=== PATIENT | female | born 1985 | race Caucasian/White ===

== ENCOUNTER 2017-04-29 10:49 | Emergency (ER) | payer SELFPAY ==
[2017-04-29 11:05] VITALS: BP 132/84; TEMP 98.1; O2SAT 98
--- NOTE | 2017-04-29 11:06 | ED.PDOC ---
History of Present Illness - General Chief Complaint: Upper Extremity Injury Stated Complaint: right hand pain since saturday after fall Time Seen by Provider: 04/29/17 10:59 Source: patient, RN notes reviewed, Vital Signs reviewed Exam Limitations: no limitations - History of Present Illness Initial Comments: Patient comes in with c/o of R hand pain over her 5th metacarpal after a fall on Saturday. She tripped over a toy and as she fell she she grabbed the railing around the porch. She has a small cut on the side of her hand that she believes is from the head of a nail. She is having pain when she flexes her pinky finger and can't make a fist. Occurred: other - 2 days ago Pain - Upper Extremity: moderate: Hand, right Method of Injury: fell Improving Factors: immobilization, rest Worsening Factors: movement Allergies/Adverse Reactions: Allergies NO KNOWN ALLERGY Allergy (Verified 04/29/17 10:58) Review of Systems - Review of Systems Constitutional: States: no symptoms reported Respiratory: States: no symptoms reported Cardiology: States: no symptoms reported Gastrointestinal/Abdominal: States: no symptoms reported Musculoskeletal: States: see HPI Skin: States: no symptoms reported Neurological: States: no symptoms reported. Denies: numbness, paresthesia, tingling, weakness All other Systems: No Change from Baseline Past Medical History (General) - Patient Medical History Hx Seizures: No Hx Stroke: No Hx Dementia: No Hx Asthma: No Hx of COPD: No Hx Cardiac Disorders: No Hx Congestive Heart Failure: No Hx Pacemaker: No Hx Hypertension: No Hx Thyroid Disease: No Hx Diabetes: No Hx Gastroesophageal Reflux: No Hx Renal Disease: No Hx Cancer: Yes - COLON Hx of HIV: No Hx Hepatitis C: No Hx MRSA: No Surgical History: other - Vaccination History Hx Tetanus, Diphtheria Vaccination: No - DONT REMEMBER Hx Influenza Vaccination: No Hx Pneumococcal Vaccination: No Immunizations Up to Date: No - Social History Hx Tobacco Use: No Hx Chewing Tobacco Use: No Hx Alcohol Use: No Hx Substance Use: No Hx Substance Use Treatment: No Hx Depression: No Feels Threatened In Home Enviroment: No Feels Threatened In a Relationship: No Hx Physical Abuse: No Hx Emotional Abuse: No Hx Suspected Abuse: No - Female History Patient is a Female of Child Bearing Age (10 -59 yrs old): Yes Hx Last Menstrual Period: 01/03/13 Patient : No Expected Date of Delivery:: 10/10/13 Family Medical History - Family History Father Family History: No Known Living Status: Still Living Hx Family Asthma: No Hx Family;Other: Myasthensia graves Physical Exam - Physical Exam General Appearance: Alert, Comfortable, No apparent distress, Well Developed, Well Groomed, Well Hydrated, Well Nourished Cardiovascular/Respiratory: normal peripheral pulses - with brisk capillary refill in fingers of R hand Elbow/Forearm Exam: normal inspection, non-tender, no evidence of injury, normal ROM Wrist Exam: no evidence of injury, normal ROM, soft tissue tenderness Hand Exam: bone tenderness - 5th metacarpal, ecchymosis - over 4th and 5th metacarpals, limited ROM - limited flexion due to pain, soft tissue tenderness, swelling Neuro/Tendon: normal sensation, normal motor functions, normal tendon functions , responds to pain, no evidence tendon injury Mental Status: alert, oriented x 3 Skin Exam: normal color, warm/dry Comments: Vital Signs 04/29/17 10:58 Temperature 98.1 F Pulse Rate [ 84 Left Radial] Respiratory 18 Rate Blood Pressure 132/84 [Left Arm] O2 Sat by Pulse 98 Oximetry Progress - Progress Progress: 04/29/17 11:24 Discussed result with patient. No signs of infection. She would like something to protect the area because every time she bumps it it is very painful. Will do a small, orthoglass splint over the area for protection. - EKG/XRAY/CT XRAY: hand - No fracture Procedures - Splinting Right 5th Digit Hand Hand-Made Type: orthoglass Splint: ulnar Pre-Proc Neuro Vasc Exam: normal Post-Proc Neuro Vasc Exam: normal Departure - Departure Clinical Impression: Contusion of right hand, initial encounter Time of Disposition: 11:26 Disposition: Discharge to Home or Self Care Condition: Good Departure Forms: ED Discharge - Pt. Copy, Patient Portal Self Enrollment Instructions: DI for Contusion, DI for Hand Injury Diet: resume usual diet Activity: increase activity as tolerated
--- NOTE | 2017-04-29 11:20 | RAD ---
EXAM DESCRIPTION: Hand,Right 3 Views CLINICAL HISTORY: Pain 5th [facility] s/p fall COMPARISON: None Available. TECHNIQUE: AP, LATERAL, AND OBLIQUE FINDINGS: Three-view right hand shows no fracture or dislocation. There is no bone lesion. There are no significant arthritic changes. There is no radiopaque foreign body. IMPRESSION: 1. Negative Electronically signed by: Benson Winkler MD 04/29/2017 11:18 AM CDT
== END 2017-04-29 11:32 | disposition home or self-care (01) ==
LOC: ER 10:49
DX: S60.221A Contusion of right hand, initial encounter (principal); Z85.038 Personal history of other malignant neoplasm of large intestine; W01.198A Fall on same level from slipping, tripping and stumbling with subsequent striking against other object, initial encounter; Y92.89 Other specified places as the place of occurrence of the external cause

== ENCOUNTER 2019-04-13 18:11 | Emergency (ER) | payer SELFPAY ==
[2019-04-13 18:26] VITALS: O2SAT 99
--- NOTE | 2019-04-13 18:46 | ED.PDOC ---
History of Present Illness - General Chief Complaint: General Time Seen by Provider: 04/13/19 18:13 Source: patient Exam Limitations: no limitations - History of Present Illness Initial Comments: the patient today 34-year-old female presenting to the emergency room secondary to cough and congestion of the couple days' duration. Additionally she has had some diarrhea for the last 24 hours. No abdominal pain. No CPR near syncope. No history of any GI bleed. She reports that she is 2 months . no shortness of breath. She does have some fatigue. Her significant other has similar symptoms. Timing/Duration: 24 hours Severity: moderate Improving Factors: nothing Worsening Factors: nothing Associated Symptoms: cough, malaise Allergies/Adverse Reactions: Allergies NO KNOWN ALLERGY Allergy (Verified 04/29/17 10:58) Home Medications: Ambulatory Orders Famotidine [Pepcid Tab] 20 mg PO BID #30 tab 04/13/19 Ondansetron Odt [Zofran ODT] 4 mg PO Q8HR PRN #5 tab 04/13/19 Review of Systems - Review of Systems Constitutional: States: malaise EENTM: States: nose congestion, throat pain Respiratory: States: cough Cardiology: States: no symptoms reported Gastrointestinal/Abdominal: States: diarrhea Genitourinary: States: no symptoms reported Musculoskeletal: States: no symptoms reported Skin: States: no symptoms reported Neurological: States: no symptoms reported Endocrine: States: no symptoms reported All other Systems: No Change from Baseline Past Medical History (General) - Patient Medical History Hx Seizures: No Hx Stroke: No Hx Dementia: No Hx Asthma: No Hx of COPD: No Hx Cardiac Disorders: No Hx Congestive Heart Failure: No Hx Pacemaker: No Hx Hypertension: No Hx Thyroid Disease: No Hx Diabetes: No Hx Gastroesophageal Reflux: No Hx Renal Disease: No Hx Cancer: Yes - Colon Hx of HIV: No Hx Hepatitis C: No Hx MRSA: No Surgical History: colectomy - Vaccination History Hx Tetanus, Diphtheria Vaccination: No - DONT REMEMBER Hx Influenza Vaccination: No Hx Pneumococcal Vaccination: No - Social History Hx Tobacco Use: No Hx Chewing Tobacco Use: No Hx Alcohol Use: No Hx Substance Use: No Hx Substance Use Treatment: No Hx Depression: No Hx Physical Abuse: No Hx Emotional Abuse: No Hx Suspected Abuse: No - Female History Patient is a Female of Child Bearing Age (10 -59 yrs old): Yes Hx Last Menstrual Period: 01/03/13 Patient : No Expected Date of Delivery:: 10/10/13 Family Medical History - Family History Father Family History: No Known Living Status: Still Living Hx Family Asthma: No Hx Family;Other: Myasthensia gravis Physical Exam - Physical Exam General Appearance: Alert, Comfortable, No apparent distress Eye Exam: bilateral normal Ears, Nose, Throat: hearing grossly normal, nasal congestion, pharyngeal erythema Neck: full range of motion, supple Respiratory: no respiratory distress, no accessory muscle use, rhonchi Cardiovascular/Chest: normal peripheral pulses, regular rate, rhythm, no edema Peripheral Pulses: radial,right: 2+, radial,left: 2+ Gastrointestinal/Abdominal: non tender, soft Rectal Exam: deferred Back Exam: no CVA tenderness, no vertebral tenderness Extremity: non-tender, normal inspection, no pedal edema, normal capillary refill 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 She is having symptoms of a viral upper respiratory tract infection as well as a viral gastroenteritis. The patient will be written for Zofran for as needed use to control any nausea or vomiting. She is to keep herself well hydrated. She can use plain [id number] Zyrtec once daily to help reduce rhinorrhea. She can use Tylenol for fever or discomfort. She needs to get set up with her bread dough mixer for this . If the diarrhea continues after the other symptoms subside then further studies can be performed. ER warnings are given for any worsening. the patient will be written for Pepcid for 2 weeks for any mild gastritis. arsalan eric [email or web address] Departure - Departure Clinical Impression: Viral syndrome Disposition: Discharge to Home or Self Care Condition: Fair Departure Forms: ED Discharge - Pt. Copy, Patient Portal Self Enrollment Diet: bland diet Activity: increase activity as tolerated Referrals: Megha,Gilmer E, MD [Primary Care Provider] - 1-2 Weeks Prescriptions: Ondansetron Odt [Zofran ODT] 4 mg PO Q8HR PRN #5 tab PRN Reason: Nausea--Moderate Famotidine [Pepcid Tab] 20 mg PO BID #30 tab Home Medications: Ambulatory Orders Famotidine [Pepcid Tab] 20 mg PO BID #30 tab 04/13/19 Ondansetron Odt [Zofran ODT] 4 mg PO Q8HR PRN #5 tab 04/13/19 Additional Instructions: the patient is a 34-year-old female presenting approximately 2 weeks gestational age secondary to what appears to be a viral syndrome. She is having symptoms of a viral upper respiratory tract infection as well as a viral gastroenteritis. The patient will be written for Zofran for as needed use to control any nausea or vomiting. She is to keep herself well hydrated. She can use plain [id number] Zyrtec once daily to help reduce rhinorrhea. She can use Tylenol for fever or discomfort. She needs to get set up with her bread dough mixer for this . If the diarrhea continues after the other symptoms subside then further studies can be performed. ER warnings are given for any worsening. the patient will be written for Pepcid for 2 weeks for any mild gastritis.
[2019-04-13] MEDS: CETIRIZINE HCL 10 MG TAB PO ONE (18:52)
[2019-04-13] MEDS: predniSONE 20 MG TAB PO ONE (18:52)
[2019-04-13 19:00] VITALS: BP 119/86; TEMP 98.9
== END 2019-04-13 18:59 | disposition home or self-care (01) ==
LOC: ER 18:11
DX: O98.811 Other maternal infectious and parasitic diseases complicating pregnancy, first trimester (principal); B34.9 Viral infection, unspecified; Z3A.08 8 weeks gestation of pregnancy; Z85.038 Personal history of other malignant neoplasm of large intestine